=== PATIENT | female | born 2000 | race Caucasian/White ===

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

== ENCOUNTER 2021-10-28 23:06 | Emergency (ER) | payer BC ==
[2021-10-28] MEDS ORDERED: solu-MEDROL 125 MG, Sterile H2O 10 ml 2 ML IM ONE ×2 (23:24)
[2021-10-28] MEDS ORDERED: BENADRYL 50 MG/ML IM ONE (23:24)
[2021-10-28] MEDS ORDERED: BENADRYL 50 MG/ML ONE (23:28)
[2021-10-28] MEDS ORDERED: Sterile H2O 10 ml IJ ONE (23:28)
[2021-10-28] MEDS ORDERED: solu-MEDROL ONE (23:29)
--- NOTE | 2021-10-28 23:34 | ERPHSYRPT ---
- History of Present Illness Time Seen by Provider: 10/28/21 23:07 Source: patient Exam Limitations: no limitations Patient Subjective Stated Complaint: PT STATES HER EYES HAVE BEEN ITCHING AND IRRITATED SINCE SUNDAY. STATES SHE HAS BEEN TAKING BENADRYL AND IT SEEMS TO HELP BUT THEN EYES ARE EVEN MORE ITCHY IN THE EVENING. Triage Nursing Assessment: PT IS ALERT AND ORIENTED. STATES THAT SHE HAS PAIN IN HER EYES 4/10.BOTH EYES ARE RED AND SWOLLEN, EYELIDS ARE DRY AND IRRITATED. Physician History: 21 years old female with history of seasonal allergy presented to the ER with chief complaint of puffiness around eyes and itching in the eyes that started this evening. Patient took Claritin and it got worse. Also have some nasal congestion. No difficulty breathing. Timing/Duration: hour(s) (4), gradual onset, worse Quality: burning, itchy Severity: moderate Location: face Possible Causes: no cause identified Modifying Factors: Worsens With: antihistamine Associated Symptoms: rash Allergies/Adverse Reactions: amoxicillin Allergy (Verified 10/28/21 23:25) Hives cephalexin Allergy (Verified 10/28/21 23:25) Swelling of Face Hx Tetanus, Diphtheria Vaccination/Date Given: Yes Hx Influenza Vaccination/Date Given: No Hx Pneumococcal Vaccination/Date Given: No Travel Risk - International Travel Have you traveled outside of the country in past 3 weeks: No - Coronavirus Screening Are you exhibiting any of the following symptoms?: No Close contact with a COVID-19 positive Pt in past 14-21 Days: No - Vaccine Status Have you recieved a Covid-19 vaccination: Yes Co Teacher: Moderna - Vaccination Dates Date of 2cond Vaccination (if applicable): UNKNOWN - Review of Systems Constitutional: No Symptoms Eyes: Eye Redness, Itchy, Tearing Ears, Nose, & Throat: Nose Congestion Respiratory: No Symptoms Cardiac: No Symptoms Genitourinary Symptoms: No Symptoms Musculoskeletal: No Symptoms Neurological: No Symptoms Psychological: No Symptoms Endocrine: No Symptoms - Past Medical History Pertinent Past Medical History: Yes Neurological History: No Pertinent History ENT History: No Pertinent History Cardiac History: No Pertinent History Respiratory History: Asthma Endocrine Medical History: No Pertinent History Musculoskeletal History: No Pertinent History GI Medical History: No Pertinent History History: No Pertinent History Psycho-Social History: No Pertinent History Female Reproductive Disorders: No Pertinent History - Past Surgical History Past Surgical History: Yes Other Surgical History: right hand - Social History Smoking Status: Never smoker Exposure to second hand smoke: Yes Drug Use: none Patient Lives Alone: No - Female History Hx Last Menstrual Period: 10/27/21 Hx Now: No - Nursing Vital Signs Nursing Vital Signs: Initial Vital Signs Temperature 98.3 F 10/28/21 23:08 Pulse Rate 111 H 10/28/21 23:08 Respiratory Rate 18 10/28/21 23:08 Blood Pressure 161/97 10/28/21 23:08 O2 Sat by Pulse Oximetry 99 10/28/21 23:08 Pain Scale Pain Intensity 4 - Physical Exam General Appearance: no apparent distress, alert Eye Exam: PERRL/EOMI, other (Bilateral mild conjunctival injection. 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 Recommended starting on Claritin and will give Pataday eyedrops to use for itching. Outpatient follow-up. Counseled pt/family regarding: diagnosis, need for follow-up - Departure Departure Disposition: Home Clinical Impression: Seasonal allergic reaction Condition: Stable Critical Care Time: No Referrals: MILAN CRUZ MD [Primary Care Provider] - Follow Up with PCP/3 days Instructions: Conjunctivitis ([place]) (DC) Additional Instructions: Take Claire daily. Use Pataday as recommended. Outpatient follow-up. Return to ER for any worsening Prescriptions: Fexofenadine HCl [Claire Allergy] 180 mg PO DAILY 10 Days #10 tablet Olopatadine HCl [Pataday] 2 drop OP DAILY 5 Days #2.5 ml
[2021-10-29 00:09] VITALS: BP 114/63; PULSE 73; O2SAT 98
== END 2021-10-29 00:09 | disposition home or self-care (01) ==
LOC: ED 23:06
DX: J30.2 Other seasonal allergic rhinitis (principal); H57.89 Other specified disorders of eye and adnexa
CPT/HCPCS: 96372; 99283; J1200; J2930